=== PATIENT | male | born 1950 | race Caucasian/White ===

== ENCOUNTER 2018-10-12 14:53 | Emergency (ER) | payer MEDICARE, BC ==
--- NOTE | 2018-10-12 15:50 | CR ---
[id number] RAD/RAD Ankle Left 3V Min Exam: RAD Ankle Left 3V Min Indication:DROPPED STEEL ON LEG/ANKLE. Comparison: No prior imaging for comparison. Discussion: Soft tissue swelling along lateral aspect of the hindfoot. No radiographically evident fracture. Bones are normal alignment. Changes of osteoarthritis Impression: As above. Arturo Rodrigez MD 10/12/18 1548 Thank you for allowing us to participate in the care of your patient.
--- NOTE | 2018-10-12 22:07 | EDM.PDOC ---
ED HPI GENERAL MEDICAL PROBLEM - General Chief Complaint: Lower Extremity Injury/Pain Stated Complaint: lt foot Time Seen by Provider: 10/12/18 15:15 Source of Information: Reports: Patient History Limitations: Reports: No Limitations - History of Present Illness INITIAL COMMENTS - FREE TEXT/NARRATIVE: Pt. presents to ER with complaints of L ankle pain. Pt. states that he dropped a large piece of steel on the lower leg/ankle several days ago. He sustained a laceration that was sutured in the clinic. He states that the incision is no longer painful, but now realizes he has anterior ankle pain. He is able to bear weight but with increased discomfort. No numbness/tingling in the extremity. Denies any injury elsewhere. Onset: Today Onset Date: 10/12/18 Location: Reports: Lower Extremity, Left Quality: Reports: Throbbing Left Ankle Pain Score (Numeric/FACES): 6 - Related Data Allergies Allergy/AdvReac Type Severity Reaction Status Date / Time ciprofloxacin [From Cipro] Allergy Other Verified 10/12/18 15:09 Penicillins Allergy Other Verified 10/12/18 15:03 Home Meds: Home Meds Aspirin 81 mg DAILY 10/12/18 [History] Cefadroxil [Duricef] 500 mg BID 10/12/18 [History] Lisinopril/Hydrochlorothiazide [Lisinopril-Hctz 20-25 mg Tab] 1 tab DAILY [History] atorvaSTATin Calcium [Atorvastatin Calcium] 20 mg DAILY 10/12/18 [History] Past Medical History Cardiovascular History: Reports: High Cholesterol, Hypertension Respiratory History: Reports: Sleep Apnea Musculoskeletal History: Reports: Arthritis - Past Surgical History GI Surgical History: Reports: Other (See Below) Other GI Surgeries/Procedures: belly button tuck Musculoskeletal Surgical History: Reports: Knee Replacement, Other (See Below) Other Musculoskeletal Surgeries/Procedures:: back surgery. bunionectomy Social & Family History - Tobacco Use Smoking Status *Q: Never Smoker - Recreational Drug Use Recreational Drug Use: No Review of Systems - Review of Systems Review Of Systems: ROS reveals no pertinent complaints other than HPI. ED EXAM, GENERAL - Physical Exam Exam: See Below Exam Limited By: No Limitations General Appearance: Alert, WD/WN, No Apparent Distress Extremities: Normal Inspection, Normal Range of Motion, No Pedal Edema, Normal Capillary Refill, Other (No crepitus or deformity to the ankle. well healing sutured laceration to anterior lower leg.) Course - Vital Signs Last Recorded V/S: Last Vital Signs Temp 37.5 C 10/12/18 14:55 Pulse 97 10/12/18 14:55 Resp 16 10/12/18 14:55 BP 135/60 10/12/18 14:55 Pulse Ox - Radiology Interpretation Free Text/Narrative:: 3 view L ankle obtained and negative for acute pathology. Departure - Departure Time of Disposition: 15:30 Disposition: Home, Self-Care 01 Clinical Impression: Left ankle sprain - Discharge Information Instructions: Ankle Sprain, [id number] Referrals: Geronimo Stanford PA-C [Primary Care Provider] - Forms: ED Department Discharge Additional Instructions: Return to ER of clinic in 5-7 days if not gradually improving. Elevate foot and ankle above heart as much as possible. Ice ankle for 10-15 min every 1-2 hours Use cam boot and crutches - Assessment/Plan Plan: Return to ER of clinic in 5-7 days if not gradually improving. Elevate foot and ankle above heart as much as possible. Ice ankle for 10-15 min every 1-2 hours Use cam boot and crutches
== END 2018-10-12 16:00 | disposition home or self-care (01) ==
LOC: VM.ED 14:53
DX: S93.402A Sprain of unspecified ligament of left ankle, initial encounter (principal); I10 Essential (primary) hypertension; M19.90 Unspecified osteoarthritis, unspecified site; Z79.82 Long term (current) use of aspirin; Z79.899 Other long term (current) drug therapy; Z88.0 Allergy status to penicillin; Z88.1 Allergy status to other antibiotic agents; W20.8XXA Other cause of strike by thrown, projected or falling object, initial encounter
CPT/HCPCS: 73610-LT; 99283-25; 99283-GF